=== PATIENT | female | born 1955 | race Caucasian/White ===

== ENCOUNTER 2021-01-05 10:49 | Day surgery (SDC) | payer MEDICARE ==
[~2021-01-05] VITALS: Ht 167.6 cm; Wt 145.0 kg
[~2021-01-05 10:49] MED LIST: ACET325T9 PO; ALPR0.5T PO; APIX5TAB PO; ATOR10TA60 PO; CARI350T14 PO; CARV12.511 PO; CIPROFLOXACIN 0.3% OPHTH SOLUTION 5ML BOTTLE. OS ONE; FESO8TAB PO; FLUO40CA9 PO; HYDR200T71 PO; INDA2.5T PO; IV RINGERS,LACTATED 1000ML 1,000 ML IV SCH; LEVO175T5 PO; LIDOCAINE 2% JELLY 6ML IN APPLICATOR. OS ONE; LISI30TA4 PO; PANT40TA77 PO; PROPARACAINE 0.5% OPHTH SOLUTION 15ML BOTTLE. OS ONE
[2021-01-05] MEDS ORDERED: CHONDROITIN-SOD-HYALURONATE 0.5 ML DISP.SYRIN. ONE (11:16)
[2021-01-05] MEDS ORDERED: CHONDROIT-SOD-HYALURONATE KIT. ONE ×3 (11:16→13:40)
[2021-01-05] MEDS ORDERED: NEO/POLYMYX/DEXAMETH OPHTH OINTMENT 3.5GM TUBE. ONE (11:16)
[2021-01-05] MEDS ORDERED: LIDOCAINE 1%/PHENYLEPH 1.5% PF OPHTH 1 ML VIAL. ONE ×2 (11:16→13:54)
[2021-01-05] MEDS: CYCLOPENTOLATE 2% OPHTH SOLUTION 2ML BOTTLE. OS SCH ×3 (11:36→11:49)
[2021-01-05] MEDS: PHENYLEPHRINE 10% OPHTH SOLUTION 5ML BOTTLE. OS SCH ×3 (11:36→11:49)
[2021-01-05 14:38] VITALS: BP 148/96
[2021-01-05] MEDS ORDERED: acetaZOLAMIDE 250 MG TABLET. PO ONE (15:30)
--- NOTE | 2021-01-05 18:37 | OP ---
DATE OF SURGERY: 01/05/2021 PREOPERATIVE DIAGNOSIS: Senile cataract of left eye. POSTOPERATIVE DIAGNOSIS: Senile cataract of left eye. PROCEDURE: Phacoemulsification with posterior chamber lens implant with anterior vitrectomy, left eye. ANESTHESIA: Topical with MAC. DESCRIPTION OF PROCEDURE: The patient was dilated and anesthetic drops were applied in the holding room and the [place] balloon cuff used for about 10 minutes. The patient was then brought to the operating room, positioned on the table and the left eye was prepped and draped in the usual sterile manner for an intraocular procedure. A lid speculum was placed between the eyelids and the operating microscope was brought into position. A paracentesis incision was made inferotemporally and intraocular dilating solution was injected into the eye followed by an injection of Viscoat. The temporal 2.4 mm incision was then made and a capsulorrhexis was performed. The lens nucleus was hydrodissected and phacoemulsified. Toward the end of the phacoemulsification, I noted there was a capsular tear nasally. I had no idea how it occurred. Phacoemulsification was discontinued and Provisc injected into the anterior chamber and the vitrectomy instrument was set up. I then aspirated the rest of the cortex as well as whatever vitreous presented at the iris plane. At the end of the vitrectomy, the cortex had been removed as well as vitreous and the eye looked good. I placed a 3-piece lens into the sulcus and then captured the optic with the anterior capsule. The wound was checked for vitreous and then the eye was pressurized and the eye looked good. There was no vitreous presentation at the wound and the pupil was nice and round. Lens was well centered. The wound was hydrated and the eye pressurized and the wound was checked for leaks and there were none. The speculum and drape were removed and Maxitrol ointment instilled in the conjunctival sac. The eye was shielded and the patient was taken to recovery room in satisfactory condition. The only complication was the capsular tear and vitreous loss. Otherwise, the case went smoothly and looked good at the end. I will see her tomorrow in my office. CLAUDIA/ALIX DR: Florentino TID: [id number]
== END 2021-01-05 14:44 | disposition home or self-care (01) ==
LOC: SURG 10:49
PROVIDERS: ATTEND Ophthalmology
DX: H25.89 Other age-related cataract (principal); I10 Essential (primary) hypertension; E78.00 Pure hypercholesterolemia, unspecified; I48.91 Unspecified atrial fibrillation; G47.30 Sleep apnea, unspecified; E66.9 Obesity, unspecified; K21.9 Gastro-esophageal reflux disease without esophagitis; M06.9 Rheumatoid arthritis, unspecified; E03.9 Hypothyroidism, unspecified; F41.9 Anxiety disorder, unspecified; F32.9 Major depressive disorder, single episode, unspecified; Z90.710 Acquired absence of both cervix and uterus; Z98.890 Other specified postprocedural states; Z79.899 Other long term (current) drug therapy; Z72.89 Other problems related to lifestyle; Z88.5 Allergy status to narcotic agent; Z88.8 Allergy status to other drugs, medicaments and biological substances
CPT/HCPCS: 66984; 67005; J0171; J3490; V2632

== ENCOUNTER 2021-01-19 10:15 | Day surgery (SDC) | payer MEDICARE ==
[~2021-01-19] VITALS: Ht 167.6 cm; Wt 145.0 kg
[~2021-01-19 10:15] MED LIST changes: +CIPROFLOXACIN 0.3% OPHTH SOLUTION 5ML BOTTLE. OD ONE; -CIPROFLOXACIN 0.3% OPHTH SOLUTION 5ML BOTTLE. OS ONE; +LIDOCAINE 2% JELLY 6ML IN APPLICATOR. OD ONE; -LIDOCAINE 2% JELLY 6ML IN APPLICATOR. OS ONE; +PROPARACAINE 0.5% OPHTH SOLUTION 15ML BOTTLE. OD ONE; -PROPARACAINE 0.5% OPHTH SOLUTION 15ML BOTTLE. OS ONE
[2021-01-19 10:39] VITALS: BP 120/70
[2021-01-19] MEDS: PHENYLEPHRINE 10% OPHTH SOLUTION 5ML BOTTLE. OD SCH ×3 (10:48→11:00)
[2021-01-19] MEDS: CYCLOPENTOLATE 2% OPHTH SOLUTION 2ML BOTTLE. OD SCH ×3 (11:05→11:16)
[2021-01-19] MEDS ORDERED: CHONDROIT-SOD-HYALURONATE KIT. ONE (11:40)
[2021-01-19] MEDS ORDERED: NEO/POLYMYX/DEXAMETH OPHTH OINTMENT 3.5GM TUBE. ONE (11:40)
[2021-01-19] MEDS ORDERED: LIDOCAINE 1%/PHENYLEPH 1.5% PF OPHTH 1 ML VIAL. ONE (11:40)
[2021-01-19 13:03] VITALS: BP 124/62
--- NOTE | 2021-01-20 13:49 | OP ---
DATE OF SURGERY: 01/19/2021 PREOPERATIVE DIAGNOSIS: Senile cataract, right eye. POSTOPERATIVE DIAGNOSIS: Senile cataract, right eye. PROCEDURE: Phacoemulsification with posterior chamber lens implant, right eye. ANESTHESIA: Local with MAC. DESCRIPTION OF PROCEDURE: The patient's dilating and anesthetic drops were applied in the outpatient department. The [employer] balloon cuff was used for about 10 minutes. The patient was then brought to the operating room and positioned on the table and the right eye was prepped and draped in the usual sterile manner for an intraocular procedure. A lid speculum was placed between the eyelids and the operating microscope brought into position. A paracentesis incision was made superotemporally and phenylid was injected into the anterior chamber followed by injection of Viscoat. A 2.4 mm incision was made temporally and a capsulorrhexis was performed. The lens nucleus was hydrodissected and phacoemulsified with the phaco handpiece. The remaining cortex was aspirated with the I/A handpiece. Provisc was used to insufflate the bag and a posterior chamber lens placed into the bag without difficulty. Provisc was aspirated and the eye was pressurized by hydrating the wound. The wound was checked for leaks and there were none. The speculum and drape were removed and Maxitrol ointment instilled into the conjunctival sac and the eye was shielded. There were no complications. The patient was taken to the recovery room in satisfactory condition. MELLY DR: Florentino TID: [id number]
== END 2021-01-19 13:13 | disposition home or self-care (01) ==
LOC: SURG 10:15 → EDUNIT# 12:00 → SURG 13:13
PROVIDERS: ATTEND Ophthalmology
DX: H25.89 Other age-related cataract (principal); I10 Essential (primary) hypertension; I48.91 Unspecified atrial fibrillation; E78.00 Pure hypercholesterolemia, unspecified; E66.9 Obesity, unspecified; E03.9 Hypothyroidism, unspecified; K21.9 Gastro-esophageal reflux disease without esophagitis; F41.9 Anxiety disorder, unspecified; F32.9 Major depressive disorder, single episode, unspecified; G47.30 Sleep apnea, unspecified; M06.9 Rheumatoid arthritis, unspecified; Z90.710 Acquired absence of both cervix and uterus; Z98.890 Other specified postprocedural states; Z79.899 Other long term (current) drug therapy; Z88.8 Allergy status to other drugs, medicaments and biological substances; Z72.89 Other problems related to lifestyle
CPT/HCPCS: 66984; J0171; J3490; V2632